=== PATIENT | female | born 1970 | race Caucasian/White ===

== ENCOUNTER 2024-08-30 03:02 | Emergency (ER) | payer OTHER ==
[2024-08-30 03:43] LABS: Absolute Basophils 0.1 K/uL (0-0.5); Absolute Eosinophils 0.2 K/uL (0-0.5); Absolute Lymphocytes (CBC) 2.5 K/uL (0.7-4.9); Absolute Monocytes 0.5 K/uL (0.1-1.3); Absolute Neutrophil 2.5 K/uL (1.8-8.0); Eosinophils % 2.7 % (0-4.4); Hematocrit 42.3 % (36.0-45.0); Hemoglobin 14.2 g/dL (12.0-15.0); Lymphocytes % 43.6 % (15.3-44.8); MCH 28.1 pg (27.0-35.0); MCHC 33.6 g/dL (32.0-36.0); MCV 83.6 fL (80-100); MPV 8.3 fL (7.6-11.3); Monocytes % 8.6 % (3.3-12.3); Neutrophils % 44.1 % (41.7-73.7); Nucleated Red Blood Cells % 0.1 % (0-0); Platelets 256 thou/uL (152-406); RBC Red Blood Cell Count 5.06 M/uL (3.86-4.86); Red Cell Distribution Width 13.1 % (12.1-15.2)
[2024-08-30 03:53] LABS: Anion Gap 8.5 mEq/L (5.0-15.0); Potassium 3.5 mEq/L (3.5-5.1); Troponin High Sensitivity 3.1 pg/mL (<58.9)
[2024-08-30 04:35] LABS: Specific Gravity 1.019 (1.005-1.030); Sqamous Epithelial <5 /HPF (None Seen); Urine Bacteria None Seen /HPF (<20); Urine Bilirubin NEGATIVE (Negative); Urine Blood Negative (Negative); Urine Clarity Clear (Clear); Urine Color Light-Yellow (Yellow); Urine Culture Reflex Order NOT NEEDED; Urine Glucose NEGATIVE (Negative); Urine Ketones NEGATIVE (Negative); Urine Micro Reflex YN NO BILL MICROSCOPIC; Urine Mucus Slight /HPF (None Seen); Urine Nitrite NEGATIVE (Negative); Urine Protein NEGATIVE (Negative); Urine RBC None Seen /HPF (None Seen); Urine Urobilinogen Normal (Normal); Urine WBC <5 /HPF (<5); Urine pH 5.5 (5.0-7.0)
--- NOTE | 2024-08-30 06:38 | RAD REPORT ---
EXAM: XR Chest, 1 View CLINICAL HISTORY: The patient is 53 years old and is Female; Chest pain. TECHNIQUE: Single view of the chest. COMPARISON: No relevant prior studies available. FINDINGS: Lungs: No pulmonary vascular congestion or consolidation. Pleural space: Unremarkable. No pneumothorax. Heart: Unremarkable. No cardiomegaly. Mediastinum: Unremarkable. Bones/joints: No acute fracture. Upper abdomen: No free air in the visualized upper abdomen. IMPRESSION: No acute cardiopulmonary process identified. Electronically signed by: Tayna Tuttle MD 08/30/2024 05:53 AM CDT RP V2 Due to temporary technical issues with the PACS/Sensee reporting system, reports are being heaven d by the in-house radiologist without review as a courtesy to ensure prompt reporting the interpreting radiologist is fully responsible for the content of the report. Transcribed Date/Time: 08/30/2024 6:38 AM
--- NOTE | 2024-08-30 06:55 | EDPHYS ---
Physician Documentation [facility] Name: Komal Rangel Age: 53 yrs Sex: Female : 1970 Arrival Date: 08/30/2024 Time: 03:02 Bed 6 Private MD: ED Physician Beto Ohara HPI: 08/30 03:24 This 53 yrs old Female presents to ER via Ambulatory with complaints of Chest ec2 Pain. 03:24 Patient arrives today for chest pain. Patient reports epigastric to midsternal chest ec2 pain. Onset approximately 2 AM. Patient reports pain is since markedly subsided. No cardiac history, no significant medical problems, no daily medications. Non-smoker. Patient reports previous history of reflux.. 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 - Infectious Disease History:: Denies. - Social history:: Smoking status: Patient denies any tobacco usage or history of. Patient/guardian denies using alcohol, street drugs. ROS: 03:24 Constitutional: as per hpi ec2 Exam: 03:24 Constitutional: GEN: NAD Head: atraumatic Eyes: EOMI Ears: External ears are ec2 normal. CV: regular rate LUNGS: no respiratory distress ABD: non-distended SKIN: no evidence of rashes MSK: no evidence of trauma Vital Signs: 03:12 BP 153 / 90; Pulse 74; Resp 18; Temp 98.2; Pulse Ox 98% ; Weight 108.86 kg; Height 5 bm8 ft. 2 in. ; Pain 4/10; 04:26 BP 119 / 82; Pulse 78; Resp 18; Temp 98.2; Pulse Ox 100% ; Pain 2/10; vc1 06:34 BP 121 / 81; Pulse 72; Resp 18; Temp 98.2; Pulse Ox 100% ; Pain 0/10; vc1 03:12 Body Mass Index 43.90 (108.86 kg, 157.48 cm) bm8 03:12 Pain Scale: Adult bm8 04:26 Pain Scale: Adult vc1 06:34 Pain Scale: Adult vc1 [place] Coma Score: 04:26 Eye Response: spontaneous(4). Motor Response: obeys commands(6). Verbal Response: vc1 oriented(5). Total: 15. 06:34 Eye Response: spontaneous(4). Motor Response: obeys commands(6). Verbal Response: vc1 oriented(5). Total: 15. MDM: 03:08 Medical Screening Exam initiated ec2 03:17 ED course: EKG independently reviewed and interpreted by me, shows normal sinus rhythm, ec2 rate of 64, no acute ST segment elevations, intervals are nonactionable.. 03:24 Data reviewed: vital signs, nurses notes. ED course: Patient arrives today for chest ec2 pain. Examination yields well-appearing nontoxic hemodynamically stable individuals otherwise in no acute distress. Will obtain cardiac workup including chest x-ray. DDx includes costochondritis, reflux, ACS.. 03:54 ED course: Metabolic profile reassuring, CBC nonactionable, troponin within normal ec2 ranges. Will obtain repeat EKG and troponin at the 2-hour david.. 05:45 ED course: Repeat EKG independently reviewed and interpreted by me, shows normal sinus ec2 rhythm, rate of 65, no acute ST segment elevations, intervals are nonactionable.. 06:54 ED course: Repeat troponin is static. Will discharge home. Return precautions given.. ec2 08/30 03:09 Order name: Basic Metabolic Panel; Complete Time: 03:54 ec2 08/30 03:09 Order name: CBC with Diff; Complete Time: 03:54 ec2 08/30 03:09 Order name: Troponin HS; Complete Time: 03:54 ec2 08/30 04:21 Order name: UAM; Complete Time: 04:36 ec2 18 05:39 Order name: Troponin HS; Complete Time: 06:54 ec2 08/30 03:09 Order name: XRAY Chest (1 view); Complete Time: 06:39 ec2 08/30 03:09 Order name: EKG; Complete Time: 03:09 ec2 08/30 03:09 Order name: Cardiac monitoring; Complete Time: 03:18 ec2 08/30 03:09 Order name: EKG - Nurse/Tech; Complete Time: 03:18 ec2 08/30 03:09 Order name: IV Saline Lock; Complete Time: 03:18 ec2 08/30 03:09 Order name: Labs collected and sent; Complete Time: : ec2 08/30 03:09 Order name: O2 Per Protocol; Complete Time: 03: ec2 08/30 03:09 Order name: O2 Sat Monitoring; Complete Time: 03:19 ec2 08/30 03:55 Order name: Misc. Order: repeat ekg/trop at 0545; Complete Time: 05:48 ec2 08/30 05:39 Order name: EKG - Nurse/Tech; Complete Time: 05:48 ec2 Administered Medications: No medications were administered Disposition Summary: 08/30/24 06:54 Discharge Ordered Notes: Location: Home ec2 Condition: Stable ec2 Diagnosis - Chest pain, unspecified ec2 Followup: ec2 - With: Private Physician - When: - Reason: Re-evaluation by your physician Discharge Instructions: - Discharge Summary Sheet ec2 - Nonspecific Chest Pain, Adult, [id number] ec2 Forms: - School release form iw - Family Work Release iw - Medication Reconciliation Form ec2 - Antibiotic Education ec2 - Prescription Opioid Use ec2 - Patient Portal Instructions ec2 - Leadership Thank You Letter ec2 Signatures: Dispatcher [employer] EDBeto Coley MD MD ec2 Darwin Cottrell, RN RN bm8
--- NOTE | 2024-08-30 06:55 | ER ---
Nurse's Notes [facility] Name: Komal Rangel Age: 53 yrs Sex: Female : 1970 Arrival Date: 08/30/2024 Time: 03:02 Bed 6 Private MD: Diagnosis: Chest pain, unspecified Presentation: 08/30 03:12 Chief complaint: Patient states: I woke up at 0220 with a squeezing chest pain. bm8 Coronavirus screen: At this time, the client does not indicate any symptoms associated with coronavirus-19. Ebola Screen: Patient negative for fever greater than or equal to 101.5 degrees Fahrenheit, and additional compatible Ebola Virus Disease symptoms Patient denies exposure to infectious person. Patient denies travel to an Ebola-affected area in the 21 days before illness onset. No symptoms or risks identified at this time. Initial Sepsis Screen: Does the patient meet any 2 criteria? No. Patient's initial sepsis screen is negative. Does the patient have a suspected source of infection? No. Patient's initial sepsis screen is negative. Risk Assessment: Do you want to hurt yourself or someone else? Patient reports no desire to harm self or others. Onset of symptoms was August 30, 2024 at 02:20. 03:12 Method Of Arrival: Ambulatory bm8 03:12 Acuity: QUINCY 2 bm8 Triage Assessment: 03:14 General: Appears in no apparent distress. comfortable, Behavior is calm, cooperative, bm8 appropriate for age. Pain: Complains of pain in chest Pain currently is 4 out of 10 on a pain scale. Quality of pain is described as squeezing, Pain began 1 hour ago. EENT: No deficits noted. No signs and/or symptoms were reported regarding the EENT system. Neuro: No deficits noted. Level of Consciousness is awake, alert, obeys commands, Oriented to person, place, time, situation, Appropriate for age. Cardiovascular: Reports chest pain, Heart tones S1 S2 present Capillary refill < 3 seconds in bilateral fingers Patient's skin is warm and dry. Respiratory: Airway is patent Respiratory effort is even, unlabored, Respiratory pattern is regular, symmetrical, Breath sounds are clear bilaterally. GI: No signs and/or symptoms were reported involving the gastrointestinal system. : No signs and/or symptoms were reported regarding the genitourinary system. Derm: No signs and/or symptoms reported regarding the dermatologic system. Musculoskeletal: No signs and/or symptoms reported regarding the musculoskeletal system. 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 - Infectious Disease History:: Denies. - Social history:: Smoking status: Patient denies any tobacco usage or history of. Patient/guardian denies using alcohol, street drugs. Screenin:18 [facility] ED Fall Risk Assessment (Adult) History of falling in the last 3 months, bm8 including since admission No falls in past 3 months (0 pts) Confusion or Disorientation Yes (5 pts) Intoxicated or Sedated No (0 pts) Impaired Gait No (0 pts) Mobility Assist Device Used No (0 pt) Altered Elimination No (0 pt) Score/Fall Risk Level 0 - 2 = Low Risk Oriented to surroundings, Maintained a safe environment, Educated pt \T\ family on fall prevention, incl call for assistance when getting out of bed, Assessed \T\ reinforced patient's understanding of fall precautions, Hourly rounding (assess needs \T\ fall precautionary measures) done, Used ambulatory aids as needed (educated on \T\ assisted with), Used gait belt as appropriate. Abuse screen: Denies threats or abuse. Nutritional screening: No deficits noted. Tuberculosis screening: No symptoms or risk factors identified. Assessment: 04:26 Reassessment: Patient appears in no apparent distress at this time. Patient and/or vc1 family updated on plan of care and expected duration. Pain level reassessed. Patient is alert, oriented x 3, equal unlabored respirations, skin warm/dry/pink. Patient states feeling better. Patient states symptoms have improved. Pain: Complains of pain in chest Pain does not radiate. Pain currently is 2 out of 10 on a pain scale. Quality of pain is described as squeezing. 06:34 Reassessment: Patient appears in no apparent distress at this time. Patient and/or vc1 family updated on plan of care and expected duration. Pain level reassessed. Patient is alert, oriented x 3, equal unlabored respirations, skin warm/dry/pink. Patient denies pain at this time. Patient states feeling better. Patient states symptoms have improved. Vital Signs: 03:12 BP 153 / 90; Pulse 74; Resp 18; Temp 98.2; Pulse Ox 98% ; Weight 108.86 kg; Height 5 bm8 ft. 2 in. ; Pain 4/10; 04:26 BP 119 / 82; Pulse 78; Resp 18; Temp 98.2; Pulse Ox 100% ; Pain 2/10; vc1 06:34 BP 121 / 81; Pulse 72; Resp 18; Temp 98.2; Pulse Ox 100% ; Pain 0/10; vc1 03:12 Body Mass Index 43.90 (108.86 kg, 157.48 cm) bm8 03:12 Pain Scale: Adult bm8 04:26 Pain Scale: Adult vc1 06:34 Pain Scale: Adult vc1 [place] Coma Score: 04:26 Eye Response: spontaneous(4). Motor Response: obeys commands(6). Verbal Response: vc1 oriented(5). Total: 15. 06:34 Eye Response: spontaneous(4). Motor Response: obeys commands(6). Verbal Response: vc1 oriented(5). Total: 15. ED Course: 03:03 Patient arrived in ED. [email or web address] 03:08 Beto Ohara MD is Attending Physician. ec2 03:14 Triage completed. bm8 03:14 Arm band placed on right wrist. bm8 03:18 Patient has correct armband on for positive identification. Bed in low position. Call bm8 light in reach. Side rails up X2. Adult w/ patient. Client placed on continuous cardiac and pulse oximetry monitoring. NIBP monitoring applied. 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 Pulse ox on. NIBP on. Door closed. Noise minimized. Pillow given. Verbal reassurance given. Head of bed elevated. 03:18 No provider procedures requiring assistance completed. EKG done, by ED staff, reviewed bm8 by Beto Ohara MD. Inserted saline lock: 20 gauge in right antecubital area, using aseptic technique. Blood collected. Flushed with 10 mL NS. Patient maintains SpO2 saturation greater than 95% on room air. 03:19 Basic Metabolic Panel Sent. vc1 03:19 CBC with Diff Sent. vc1 03:19 Troponin HS Sent. vc1 03:41 XRAY Chest (1 view) In Process Unspecified. EDMS 03:57 Natalee Mari, RN is Primary Nurse. vc1 05:48 Troponin HS Sent. vk 05:48 Initial lab(s) drawn, by me, sent to lab. EKG done, by ED staff. vk 07:26 IV discontinued, intact, bleeding controlled, No redness/swelling at site. Pressure iw dressing applied. 07:27 Provided Education on: . iw Administered Medications: No medications were administered Medication: 03:18 VIS not applicable for this client. bm8 Outcome: 06:54 Discharge ordered by . ec2 07:27 Discharged to home ambulatory, with family, iw 07:27 Condition: good 07:27 Discharge instructions given to patient, Instructed on discharge instructions, follow up and referral plans. Demonstrated understanding of instructions, follow-up care, 07:27 Patient left the ED. iw Signatures: Dispatcher [employer] Kesha Seymour, RN RN iw Magdalena Griffin [email or web address] Natalee Mari, RN RN vc1 Beto Ohara MD MD ec2 Kruse, Vivian vk McDonald, Brad, RN RN bm8
[2024-08-30 08:12] VITALS: TEMP 98.2
[2024-08-30 08:17] VITALS: O2SAT 100
[2024-08-30 08:21] VITALS: BP 121/81
--- NOTE | 2024-08-31 12:33 | EKG ---
Test Date: 2024-08-30 Test Time: 05:43:36 Supervisor Claims: PELON MEASUREMENT RESULTS: Intervals: Rate: 65 [place]: 176 QRSD: 72 QT: 408 QTc: 424 [place]: P: 75 [place]: 176 QRS: 62 T: 75 INTERPRETIVE STATEMENTS: Normal sinus rhythm Cannot rule out Anterior infarct, age undetermined Abnormal ECG Compared to ECG 08/30/2024 03:13:02 Sinus arrhythmia no longer present Myocardial infarct finding still present Electronically Signed On 08-31-24 12:26:29 CDT by Hernandez Bolanos
--- NOTE | 2024-08-31 12:33 | EKG ---
Test Date: 2024-08-30 Test Time: 03:13:02 Digital Content Manager: PELON MEASUREMENT RESULTS: Intervals: Rate: 64 [place]: 180 QRSD: 76 QT: 400 QTc: 412 [place]: P: 68 MS: 180 QRS: 64 T: 79 INTERPRETIVE STATEMENTS: Normal sinus rhythm with sinus arrhythmia Cannot rule out Anterior infarct, age undetermined Abnormal ECG No previous ECG available for comparison Electronically Signed On 08-31-24 12:26:36 CDT by Hernandez Bolanos
== END 2024-08-30 07:27 | disposition home or self-care (01) ==
LOC: ER 03:02
DX: R07.9 Chest pain, unspecified (principal)
CPT/HCPCS: 36415; 71045; 80048; 81001; 84484; 85025; 93005; 99285